=== PATIENT | male | born 1960 | race Caucasian/White ===

== ENCOUNTER 2022-09-18 17:02 | Emergency (ER) | payer BC ==
[2022-09-18] MEDS ORDERED: Hydrocortisone Acetate 1% Crm 30 GM Tube TOP STA (18:34)
[2022-09-18] MEDS ORDERED: Hydrocortisone 2.5% Crm 30 GM Tube TOP ONE (18:51)
[2022-09-18 20:26] VITALS: BP 147/86; PULSE 89
== END 2022-09-18 19:17 | disposition home or self-care (01) ==
LOC: FB.ED 17:02
DX: L98.8 Other specified disorders of the skin and subcutaneous tissue (principal); Z98.890 Other specified postprocedural states
CPT/HCPCS: 99281; 99282; A9270-GY